=== PATIENT | male | born 1950 | race Caucasian/White ===

== ENCOUNTER → 2017-08-12 | Outpatient (CLI) | payer OTHER ==
[~2017-08-12] MED LIST: ALBUTEROL2.5 MG/31 INH; AMARYL2 MG PO; IBUPROFEN 200200 M1 PO; JANUVIA50 MG PO; KLOR-CON 1010 MEQ PO; LASIX 40 MG TAB40 M2 PO; METFORMIN HCL500 MG PO; PRINIVIL20 MG PO; PROMETHAZINE/C118 ML PO; ROBAXIN500 MG PO; SYNTHROID100 MCG PO; ZOCOR20 MG PO
--- NOTE | 2017-08-13 08:48 | PAINCON ---
[address] [address] PAIN MANAGEMENT CONSULTATION Name: DARIUSWHIT Marcello Room: [facility]#: [id number] Admission: 08/12/17 Attend Phys: Roxana Dominique MD Discharge: Date of : 48 Report #: [id number] THIS REPORT FOR: //name// CC: Roxana Armando MD DATE OF SERVICE: 08/12/2017 FOLLOWUP COMPLAINT: "Pain is improved quite a bit." FOLLOWUP HISTORY: The patient is a 67-year-old gentleman who has been seen in the pain clinic because of lumbar radiculopathy. He has undergone epidural steroid injections in June and gleaned benefit from these. He feels that things are going reasonably well. He is able to engage in a higher level of activity. As you recall, he works at [employer]. He works in the rental department. He feels at this juncture that he would be able to return to work on a limited basis. He would like to start in the next few days. He will start with a few hours in the morning and work his way up as he is able to tolerate it. He denies any bowel or bladder dysfunction. Overall, he feels that things are going better. His son is moving in to a new house. They have been staging the house. He helped his son carry items in. He has helped to move items around. Overall, he has had no worsening of his pain. He did have an episode when he was in bed, he stretched to extend his arms and legs and noticed some pain and discomfort which shot down into his leg similar to that which he had experienced in the past but that has given way to more comfort with activity. He did note some headaches after the injections. None of these were positional headaches. He stopped taking his diabetes medications for a while. Overall, things have returned to normal at this juncture. ALLERGIES: No known drug allergies. CURRENT MEDICATIONS: Albuterol 2.5 mg 2 puffs q. 6 hours p.r.n., Lasix 40 mg b.i.d., Amaryl 2 mg, ibuprofen 200 mg every 4-6 hours p.r.n. total of 400 mg, levothyroxine 100 mcg, Prinivil 20 mg, Glucophage 500 mg b.i.d., potassium 10 mEq, Zocor 20 mg, and Januvia 50 mg. PHYSICAL EXAMINATION: VITAL SIGNS: Blood pressure 155/70, pulse 92, respiratory rate 14, room air saturation 93%. Height 5 feet 11 inches, weight 239 pounds, BMI is 33. Temperature 98.6. HEENT: Head is atraumatic. NECK: No JVD or adenopathy. HEART: Regular rate. ABDOMEN: Nontender. EXTREMITIES: The patient feels that the pain which was radiating down into his [facility] [address] [place] [address] PAIN MANAGEMENT CONSULTATION Name: WHIT MCCOY Marcello Room: [facility]#: [id number] Admission: 08/12/17 Attend Phys: Roxana Dominique MD Discharge: Date of : 48 Report #: [id number] left L4-L5 distribution has improved. He has noted resolution of tingling and notes improvement of weakness in the leg. IMPRESSION: 1. History of lumbar radiculopathy, improved after L4-L5 epidural steroid injections. 2. Hypertension, stable. 3. Diabetes, stable. 4. Hypothyroidism. 5. Hypercholesterolemia. RECOMMENDATIONS: We discussed treatment options with the patient. At this juncture, given that he has noted significant improvement in his pain, we will not proceed with another epidural steroid injection. He and I discussed the options. At this juncture, he will continue to do slow stretching exercises. He will slowly increase his level of activity. The patient will return to work for a few hours in the morning at his job at [employer]. He will increase his hours as he is able to tolerate it. If he should note worsening of his pain or discomfort, he will call us. We will consider the possibility of another epidural steroid injection in the future. Overall, things seem to be going well. We will have him continue to take his nonsteroidal anti-inflammatory medication Advil for a period of time. Possibility of using Mobic remains an option in the future. We would like to thank you for letting us participate in his care. We hope he continues to improve. <ELECTRONICALLY SIGNED> By: Roxana Dominique MD 08/13/17 [id number]. Kashif Dominique MD /MIKE
== END ==
LOC: M.PC 01:50
DX: M54.16 Radiculopathy, lumbar region (principal); I10 Essential (primary) hypertension; E11.9 Type 2 diabetes mellitus without complications; E03.9 Hypothyroidism, unspecified; E78.00 Pure hypercholesterolemia, unspecified